=== PATIENT | male | born 1990 | race Caucasian/White ===

== ENCOUNTER 2019-12-31 21:00 | Inpatient (IN) | payer OTHER ==
[~2019-12-31] VITALS: Ht 193 cm; Wt 130.1 kg
[2019-12-31] MEDS ORDERED: ONDANSETRON 2MG/ML, 2ML ONE (21:18)
[2019-12-31] MEDS ORDERED: MORPHINE SULFATE 4 MG/ML, 1ML ONE (21:18)
[2019-12-31] MEDS ORDERED: IBUPROFEN 600 MG TABLET ONE (21:18)
[2019-12-31] MEDS ORDERED: ACETAMINOPHEN 500 MG TABLET ONE (21:19)
[2019-12-31] MEDS ORDERED: PLEASE ENTER ALLERGIES MC SCH (21:30)
[2019-12-31] MEDS ORDERED: SODIUM CHLORIDE 0.9% 1,000ML IVBOLUS ONE (21:30)
[2019-12-31] MEDS ORDERED: ACETAMINOPHEN 500 MG TABLET PO ONE (21:30)
[2019-12-31] MEDS ORDERED: ONDANSETRON 2MG/ML, 2ML IVPush ONE (21:30)
[2019-12-31] MEDS ORDERED: IBUPROFEN 600 MG TABLET PO ONE (21:30)
[2019-12-31] MEDS ORDERED: SODIUM CHLORIDE FLUSH 10ML SYR IVF ONE (21:30)
[2019-12-31] MEDS ORDERED: MORPHINE SULFATE 4 MG/ML, 1ML IVPush PRN (21:30)
[2019-12-31 21:38] LABS: RAPID INFLUENZA A POSITIVE (Negative); RAPID INFLUENZA B Negative (Negative)
--- NOTE | 2019-12-31 21:42 | NUR ---
pt to room bib ems with temp of 104.8 pt states started feeling sick cough cold s/s
--- NOTE | 2019-12-31 22:14 | NUR ---
pt flu pos, awaiting admit see vs
[2019-12-31 22:15] LABS: BASOPHILS # (AUTO) 0.01 x10^3/uL (0-0.1); BASOPHILS % (AUTO) 0 % (0-1); EOSINOPHILS # (AUTO) 0.01 x10^3/uL (0-0.4); EOSINOPHILS % (AUTO) 0 % (1-7); LYMPHOCYTES # (AUTO) 0.62 x10^3/uL (1-3.4); LYMPHOCYTES % (AUTO) 9 % (22-44); MD NO; MEAN CORPUSCULAR HGB CONC 34.4 g/dL (33.2-36.2); MEAN CORPUSCULAR VOLUME 92.9 fL (81-97); MEAN PLATELET VOLUME 8.9 fL (7.4-10.4); MONOCYTES # (AUTO) 0.78 x10^3/uL (0.2-0.8); MONOCYTES % (AUTO) 11 % (2-9); NEUTROPHILS % (AUTO) 80 % (42-75); PLATELET COUNT 128 x10^3/uL (130-400); RED BLOOD COUNT 4.94 x10^6/uL (4.38-5.82); RED CELL DISTRIBUTION WIDTH 12.6 % (9.4-14.8)
[2019-12-31 22:27] LABS: ALANINE AMINOTRANSFERASE 96 U/L (12-78); ALBUMIN 3.3 g/dL (3.4-5.0); ANION GAP 9 mmol/L (5-15); CALCIUM 7.6 mg/dL (8.5-10.1); CHLORIDE 105 mmol/L (98-107)
[2019-12-31 22:30] LABS: ALKALINE PHOSPHATASE 50 U/L (45-117); BILIRUBIN,TOTAL 0.4 mg/dL (0.2-1.0); TOTAL PROTEIN 6.3 g/dL (6.4-8.2)
[2019-12-31] MEDS ORDERED: OSELTAMIVIR 75 MG CAPSULE PO ONE (22:30)
[2019-12-31] MEDS ORDERED: OSELTAMIVIR 75 MG CAPSULE ONE (22:56)
[2019-12-31] MEDS ORDERED: METF500T17 PO (22:59)
[2019-12-31 23:51] VITALS: BP 110/68
[2020-01-01 03:19] VITALS: BP 145/80
[2020-01-01 06:40] VITALS: BP 123/80
[2020-01-01] MEDS ORDERED: MAGNESIUM SULFATE PMX 2GM/50ML 50 ML IV ONE (08:00)
[2020-01-01] MEDS ORDERED: POTASSIUM PHOSPHATE 22 MEQ in SODIUM CHLORIDE 0.9% 500 ML IV ONE (08:00)
[2020-01-01] MEDS: POTASSIUM CHLORIDE 20 MEQ TAB.ER.PRT PO SCH ×2 (08:01→17:53)
[2020-01-01] MEDS: ONDANSETRON ODT 4 MG PO PRN ×2 (08:01→21:06)
[2020-01-01] MEDS: DOXYCYCLINE 100MG TABLET PO SCH ×2 (08:01→21:05)
[2020-01-01] MEDS: OSELTAMIVIR 75 MG CAPSULE PO SCH ×2 (08:01→21:05)
[2020-01-01] MEDS: AMOXICILLIN/CLAV 875-125MG TABLET PO SCH ×2 (08:01→21:05)
[2020-01-01 12:50] VITALS: BP 112/70
[2020-01-01] MEDS: ACETAMINOPHEN 325 MG TABLET PO PRN ×2 (14:41→21:05)
[2020-01-01 15:52] LABS: MICROSCOPIC INDICATED
[2020-01-01 16:12] LABS: CULTURE INDICATED? NO
[2020-01-01 20:48] VITALS: BP 127/53
[2020-01-02 00:01] VITALS: BP 119/73
[2020-01-02] MEDS: ACETAMINOPHEN 325 MG TABLET PO PRN ×3 (00:27→17:38)
[2020-01-02 05:56] LABS: BASOPHILS # (AUTO) 0.01 x10^3/uL (0-0.1); BASOPHILS % (AUTO) 0 % (0-1); EOSINOPHILS % (AUTO) 0 % (1-7); LYMPHOCYTES # (AUTO) 1.63 x10^3/uL (1-3.4); LYMPHOCYTES % (AUTO) 39 % (22-44); MD NO; MEAN CORPUSCULAR HGB CONC 34.3 g/dL (33.2-36.2); MEAN CORPUSCULAR VOLUME 93.3 fL (81-97); MEAN PLATELET VOLUME 9.1 fL (7.4-10.4); MONOCYTES # (AUTO) 0.59 x10^3/uL (0.2-0.8); MONOCYTES % (AUTO) 14 % (2-9); NEUTROPHILS # (AUTO) 1.98 x10^3/uL (1.8-6.8); NEUTROPHILS % (AUTO) 47 % (42-75); PLATELET COUNT 118 x10^3/uL (130-400); RED CELL DISTRIBUTION WIDTH 12.9 % (9.4-14.8)
[2020-01-02 06:00] LABS: ALBUMIN 3.2 g/dL (3.4-5.0); ANION GAP 8 mmol/L (5-15); CALCIUM 7.8 mg/dL (8.5-10.1); CHLORIDE 102 mmol/L (98-107)
[2020-01-02 06:04] LABS: ALANINE AMINOTRANSFERASE 86 U/L (12-78); ALKALINE PHOSPHATASE 48 U/L (45-117); BILIRUBIN,TOTAL 0.6 mg/dL (0.2-1.0); CREATININE 0.92 mg/dL (0.7-1.3); TOTAL PROTEIN 6.5 g/dL (6.4-8.2)
[2020-01-02 07:33] VITALS: BP 128/78
[2020-01-02] MEDS: AMOXICILLIN/CLAV 875-125MG TABLET PO SCH (07:41)
[2020-01-02] MEDS: POTASSIUM CHLORIDE 20 MEQ TAB.ER.PRT PO SCH ×2 (07:41→17:38)
[2020-01-02] MEDS: OSELTAMIVIR 75 MG CAPSULE PO SCH ×2 (07:41→20:21)
[2020-01-02] MEDS: DOXYCYCLINE 100MG TABLET PO SCH ×2 (07:41→20:22)
[2020-01-02] MEDS ORDERED: POTASSIUM PHOSPHATE 22 MEQ in SODIUM CHLORIDE 0.9% 500 ML IV ONE (08:00)
[2020-01-02] MEDS: AMPICILLIN/SULBACTAM 1,500 MG in SODIUM CHLORIDE 0.9% 50 ML IV SCH ×3 (08:37→19:31)
[2020-01-02 13:21] VITALS: BP 110/72
[2020-01-02 19:34] VITALS: BP 118/72
[2020-01-03] MEDS: AMPICILLIN/SULBACTAM 1,500 MG in SODIUM CHLORIDE 0.9% 50 ML IV SCH ×3 (01:38→13:49)
[2020-01-03 01:39] VITALS: BP 105/67
[2020-01-03 06:15] LABS: ALANINE AMINOTRANSFERASE 75 U/L (12-78); ALBUMIN 3.2 g/dL (3.4-5.0); ANION GAP 5 mmol/L (5-15); CALCIUM 8.2 mg/dL (8.5-10.1); CHLORIDE 106 mmol/L (98-107); CREATININE 0.75 mg/dL (0.7-1.3)
[2020-01-03 06:17] LABS: ALKALINE PHOSPHATASE 43 U/L (45-117); BILIRUBIN,TOTAL 0.6 mg/dL (0.2-1.0); TOTAL PROTEIN 6.7 g/dL (6.4-8.2)
[2020-01-03 08:00] VITALS: BP 109/72
[2020-01-03] MEDS: POTASSIUM CHLORIDE 20 MEQ TAB.ER.PRT PO SCH ×2 (08:20→16:49)
[2020-01-03] MEDS: GUAIFENESIN 200 MG TABLET PO SCH ×3 (08:21→16:49)
[2020-01-03] MEDS: DOXYCYCLINE 100MG TABLET PO SCH (08:21)
[2020-01-03] MEDS: OSELTAMIVIR 75 MG CAPSULE PO SCH (08:21)
[2020-01-03] MEDS ORDERED: GUAI200T37 PO (12:06)
[2020-01-03] MEDS ORDERED: AMOX1TAB64 PO (12:06)
[2020-01-03] MEDS ORDERED: OSEL75CA14 PO (12:06)
[2020-01-03] MEDS ORDERED: DOXY100T PO (12:06)
[2020-01-03 14:43] VITALS: BP 121/77
== END 2020-01-03 19:44 | disposition home or self-care (01) | DRG 871 ==
LOC: ED 23:19 → EDIP 23:20 → 3N 23:42
PROVIDERS: ATTEND Internal Medicine
DX: A41.89 Other specified sepsis (principal); J96.01 Acute respiratory failure with hypoxia; J10.1 Influenza due to other identified influenza virus with other respiratory manifestations; E87.6 Hypokalemia; E66.9 Obesity, unspecified; E83.39 Other disorders of phosphorus metabolism; R73.03 Prediabetes; E83.42 Hypomagnesemia; Z82.49 Family history of ischemic heart disease and other diseases of the circulatory system; Z80.3 Family history of malignant neoplasm of breast; Z68.34 Body mass index [BMI] 34.0-34.9, adult; Z83.3 Family history of diabetes mellitus; Z87.891 Personal history of nicotine dependence
CPT/HCPCS: 36415; 71045; 80053; 81001; 83605; 83735; 84100; 84145; 85025; 87040; 87400; 93005; 96361; 96374; 96375; G0378; J2405; Q0162; J0295; J2270; J3475; J7030; J7040